=== PATIENT | male | born 1990 | race Caucasian/White ===

== ENCOUNTER 2016-03-03 07:10 | Emergency (ER) | payer OTHER ==
[2016-03-03 07:44] VITALS: BP 136/81
--- NOTE | 2016-03-03 08:07 | ERNOTE ---
ENT HPI Date of Service: 03/03/16 Presenting Symptoms: dental pain Time Seen by Provider: 03/03/16 08:04 - Immun/Allergies/Home Medications Immunizations: IMMUNIZATION HX Immunizations Up to Date Yes History of Influenza Vaccine Yes Hx Pneumococcal Vaccination No Allergies/Adverse Reactions: Allergies Allergy/AdvReac Type Severity Reaction Status Date / Time No Known Allergies Allergy Verified 03/03/16 07:44 Home Medications: HOME MEDICATIONS Ibuprofen [Motrin] 800 mg PO TID PRN #30 tab 03/03/16 [Last Taken Unknown] Penicillin V Potassium [Pen-Vee K] 500 mg PO QID #40 tab 03/03/16 [Last Taken Unknown] - Patient's Past Medical History Patient History - Medical: No pertinent hx Patient History - Cancer: No Hx of Cancer - Social History Living Situations: home Smoking Status: Current every day smoker Have you smoked in the past 12 months: No Do you dip or chew tobacco: No Patient requests Smoking Cessation Consult: No Initiate information on Smoking Cessation: No Alcohol Use: none Drug Use: none ED Progress - Vital Signs Vital Signs: Vital Signs 03/03/16 07:37 Temperature 35.9 C L Pulse Rate 84 Respiratory 16 Rate Blood Pressure 136/81 O2 Sat by Pulse 100 Oximetry - Progress/Reassessment Chief Complaint: Dental Problem Departure Clinical Impression: Pain, dental - Departure Disposition: Home self-care Condition: Good Referrals: Taz Geronimo MD [Primary Care Provider] - Prescriptions: Ibuprofen [Motrin] 800 mg PO TID PRN #30 tab PRN Reason: Pain Penicillin V Potassium [Pen-Vee K] 500 mg PO QID #40 tab
== END 2016-03-03 08:16 | disposition home or self-care (01) ==
LOC: ER 07:10
DX: K08.89 Other specified disorders of teeth and supporting structures (principal); F17.210 Nicotine dependence, cigarettes, uncomplicated

== ENCOUNTER 2016-11-24 19:55 | Emergency (ER) | payer OTHER ==
[2016-11-24 20:28] VITALS: BP 154/84
[2016-11-24] MEDS ORDERED: HYDROcodone/ACETAMINOPHEN 1 EACH TABLET PO ONE (21:03)
[2016-11-24] MEDS ORDERED: PENICILLIN V POTASSIUM 250 MG TABLET PO ONE (21:04)
[2016-11-24] MEDS ORDERED: HYDROcodone/ACETAMINOPHEN 1 EACH TABLET ONE (21:07)
--- NOTE | 2016-11-24 21:07 | ERNOTE ---
ENT [facility] Date of Service: 11/24/16 Presenting Symptoms: dental pain Time Seen by Provider: 11/24/16 20:49 Source: patient, RN notes reviewed, old records Exam Limitations: no limitations - Immun/Allergies/Home Medications Immunizations: IMMUNIZATION HX Immunizations Up to Date Yes History of Influenza Vaccine Yes Hx Pneumococcal Vaccination No Allergies/Adverse Reactions: Allergies Allergy/AdvReac Type Severity Reaction Status Date / Time No Known Allergies Allergy Verified 03/03/16 07:44 Home Medications: HOME MEDICATIONS Ibuprofen [Motrin] 600 mg PO Q6H PRN #40 tab 11/24/16 [Last Taken Unknown] Penicillin V Potassium [Pen-Vee K] 500 mg PO Q8H #30 tab 11/24/16 [Last Taken Unknown] - History of Present Illness Narrative: 26 year old male presents to the ED for dental pain that began a few days ago when he broke a tooth. He reports that he has 13 broken teeth. He has been nauseous and believes he has had a fever. He was last here in February for the same issue. He reports that he saw a dentist afterwards. Severity: Present: severe ENT Location: Present: dental Prearrival Treatment: Present: over the counter meds Prior Treament: Reports: similar symptoms before. Denies: recently seen Review of Systems - Review of Systems Constitutional: Present: fever, chills, malaise EYE: Present: no symptoms reported ENT: Absent: ear pain, nose congestion, sore throat Respiratory: Present: cough. Absent: shortness of breath, wheezing Cardiology: Present: no symptoms reported Gastrointestinal/Abdominal: Present: nausea. Absent: vomiting, abdominal pain Genitourinary: Present: no symptoms reported Musculoskeletal: Absent: muscle stiffness, neck pain Skin: Absent: rash, lesions Neurological: Absent: headache, dizziness/light-headedness Endocrine: Present: no symptoms reported Hematologic/Lymphatic: Present: no symptoms reported Psych: Present: no symptoms reported - Patient's Past Medical History Patient History - Medical: No pertinent hx Patient History - Cardiac/Respiratory: No pertinent hx Patient History - Cancer: No Hx of Cancer Patient History - Surgical Procedures: Other Patient History - Other: None - Social History Living Situations: parents Abuse History: No History of abuse Psych History: No pertinent hx Smoking Status: Current every day smoker Cigarettes Packs Per Day: 2 Have you smoked in the past 12 months: Yes Do you dip or chew tobacco: No Patient requests Smoking Cessation Consult: No Initiate information on Smoking Cessation: No Alcohol Use: none Drug Use: none - Immunizations Immunizations Up to Date: Yes Hx Pneumococcal Vaccination: No History of Influenza Vaccine: Yes Physical Exam - Physical Exam General Appearance: Present: alert, thin, other - Shaking, disheveled Head Exam: Present: normal inspection. Absent: swelling Ears, Nose, Throat: Present: normal except - - Very poor dentition, numerous broken and decayed teeth Neck: Present: normal inspection, nontender, supple Respiratory: Present: no respiratory distress, normal breath sounds, no accessory muscle use, lungs clear Cardiovascular/Chest: Present: regular rate, rhythm, no murmur Neurological Exam: Present: alert, oriented, normal mood/affect, no motor/ sensory deficits Skin Exam: Present: normal color, warm/dry ED Progress - Vital Signs Patient's Vital Signs:: I have reviewed the patient's vital signs. Vital Signs: Vital Signs 11/24/16 20:24 Temperature 36.7 C Pulse Rate 60 Respiratory 16 Rate Blood Pressure 154/84 O2 Sat by Pulse 100 Oximetry - Progress/Reassessment Chief Complaint: Dental Problem Progress:: Unchanged Departure Clinical Impression: Pain, dental - Departure Disposition: Home Follow Up Needed Condition: Stable Instructions: Dental Caries Additional Instructions: SEE A DENTIST Prescriptions: Ibuprofen [Motrin] 600 mg PO Q6H PRN #40 tab PRN Reason: Pain Penicillin V Potassium [Pen-Vee K] 500 mg PO Q8H #30 tab
[2016-11-24] MEDS ORDERED: PENICILLIN V POTASSIUM 250 MG TABLET ONE (21:08)
== END 2016-11-24 21:16 | disposition home or self-care (01) ==
LOC: ER 19:55
DX: K08.89 Other specified disorders of teeth and supporting structures (principal); F17.200 Nicotine dependence, unspecified, uncomplicated